=== PATIENT | female | born 1965 | race Caucasian/White ===

== ENCOUNTER 2023-04-13 09:59 | Emergency (ER) | payer OTHER, MEDICAID, SELFPAY ==
[2023-04-13] VITALS (10 sets, daily range): BP systolic 182–211; BP diastolic 107–125; PULSE 88–102; RESP 10–24; TEMP 36.8; O2SAT 95–98
--- NOTE | 2023-04-13 10:20 | DI.RAD.S_ITS ---
PROCEDURE: XR CHEST 1V INDICATIONS: chest pain TECHNIQUE: One view of the chest was acquired. COMPARISON: None. FINDINGS: Surgical changes and devices: None. Lungs and pleura: Lungs are clear. No pleural effusions or pneumothorax. Mediastinum: Mediastinal contours appear normal. Heart size is normal. Bones and chest wall: No suspicious bony lesions. Rightward curvature of the thoracic spine. Overlying soft tissues appear unremarkable. IMPRESSION: Portable chest within normal limits for age. Dictated by: Ricki Velásquez M.D. on 04/13/2023 at 11:15 Approved by: Ricki Velásquez M.D. on 04/13/2023 at 11:16
[2023-04-13 10:49] LABS: Add Manual Diff / Slide Review NO; Basophils Absolute Auto 0 /uL (0-100); Basophils Percent Auto 0.5 % (0-2); Eosinophils Absolute Auto 100 /uL (0-450); Eosinophils Percent Auto 0.7 % (2-4); Hemoglobin 12.3 g/dL (12.0-16.0); Lymphocytes Absolute Auto 1300 /uL (1100-4500); Lymphocytes Percent Auto 15.8 % (25-40); Mean Corpuscular HGB Conc 33.3 % (30-36); Mean Corpuscular Hemoglobin 30.2 PG (26-34); Mean Corpuscular Volume 90.8 fL (80-100); Monocytes Absolute Auto 400 /uL (0-900); Monocytes Percent Auto 4.8 % (3-14); Neutrophils Absolute Auto 6400 /uL (1500-7000); Neutrophils Percent Auto 78.2 % (50-75); Platelet Count 231 X10^3/uL (150-400); Red Blood Cell Count 4.08 X10^6/uL (4.0-5.2); Red Cell Distribution Width 13.7 % (11.6-14.8); White Blood Cell Count 8.2 X10^3/uL (4.5-11.0)
--- NOTE | 2023-04-13 10:52 | ED.GENADULT ---
HPI - General Adult General Chief complaint: Hypertension Stated complaint: high BP/ V/HX farooq heartattacks Time Seen by Provider: 04/13/23 10:19 Source: patient Mode of arrival: Family Vehicle History of Present Illness HPI narrative: 58-year-old female who does have history of coronary artery disease and also hypertension. She is been off of her blood pressure medicine for several days if not potentially a little longer. States she just ran out of the medications. She was riding the bus to get her dose of methadone today when she stated that she had a episode of nausea and vomiting. She did vomit and felt much better almost immediately afterwards. She denies chest pain or shortness of breath or headache or lower extremity swelling. She was checked out at the clinic and was brought to the emergency department because of her elevated blood pressure. Related Data Home Medications Medication Instructions Recorded Confirmed aspirin 81 mg chewable tablet 1 tab PO DAILY 04/13/23 04/13/23 atorvastatin 80 mg tablet 80 mg PO DAILY 04/13/23 04/13/23 metoprolol succinate 50 mg 50 mg PO DAILY 04/13/23 04/13/23 tablet,extended release 24 hr spironolactone 25 mg tablet 25 mg PO DAILY 04/13/23 04/13/23 valsartan 320 mg tablet 320 mg PO DAILY 04/13/23 04/13/23 Previous Rx's Medication Instructions Recorded metoprolol succinate 50 mg 50 mg PO DAILY #30 tabs 04/13/23 tablet,extended release 24 hr spironolactone 25 mg tablet 25 mg PO DAILY #30 tabs 04/13/23 valsartan 320 mg tablet 320 mg PO DAILY #30 tabs 04/13/23 Allergies Allergy/AdvReac Type Severity Reaction Status Date / Time No Known Drug Allergies Allergy Verified 04/13/23 11:33 Review of Systems Constitutional Constitutional: Reports system reviewed and no additional complaints, except as documented Cardiovascular Cardiovascular: Reports system reviewed and no additional complaints, except as documented Respiratory Respiratory: Reports system reviewed and no additional complaints, except as documented Gastrointestinal Gastrointestinal: Reports system reviewed and no additional complaints, except as documented Integumentary/Breasts Skin/Breast: Reports system reviewed and no additional complaints, except as documented Neurologic Neurologic: Reports system reviewed and no additional complaints, except as documented Hematologic/Lymphatic On Anticoagulants: No Patient History Medical History Coronary artery disease Hypertension Social History Smoking Status: Current every day smoker Smoking Status: Current every day smoker tobacco type: cigarettes alcohol intake frequency: 0-2 drinks per day Substance Use Type: former substance user, marijuana, heroin, 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 Exam Initial Vital Signs Initial Vital Signs: Vital Signs Pulse Rate 102 H 04/13/23 10:21 Respiratory Rate 24 04/13/23 10:21 Pulse Oximetry 98 04/13/23 10:21 HENMT Head: normal to inspection Resp Effort & Inspection: normal respiratory effort Auscultation: clear to auscultation bilaterally Cardio Rate: regular rate Rhythm: regular rhythm GI Inspection: normal to inspection Skin General: no rashes or lesions noted Neuro General: patient alert, patient awake and moves all extremities Extrem General: No edema Course Orders Ordered: ED Orders 04/13/23 10:20 XR chest 1V Stat EKG-12 Lead Stat 04/13/23 10:40 Complete Blood Count AUTO DIFF Stat Comprehensive Metabolic Panel Stat Lipase Stat Troponin & CK Cardiac Panel Stat 04/13/23 11:[address] [facility] [place] - Transmission Repairer Stat Discontinued Medications Metoprolol Succinate (Metoprolol Er 50 Mg Tablet) 50 mg PO NOW ONE Stop: 04/13/23 11:47 Spironolactone (Spironolactone 25 Mg Tablet) 25 mg PO NOW ONE Stop: 04/13/23 11:47 Valsartan (Valsartan 80 Mg Tablet) 320 mg PO NOW ONE Stop: 04/13/23 11:47 Vital Signs Vital signs: Vital Signs - 8 hr 04/13/23 10:30 04/13/23 10:23 04/13/23 10:21 Temperature 98.2 F 98.2 F Pulse Rate 100 H 98 H 102 H Respiratory Rate 20 16 24 Blood Pressure 182/114 H 182/107 H Pulse Oximetry 97 98 98 Oxygen Delivery Method Room Air Room Air 04/13/23 10:22 04/13/23 10:22 04/13/23 10:30 Temperature Pulse Rate 100 H Respiratory Rate 10 L Blood Pressure 182/107 H 182/114 H Pulse Oximetry 97 Oxygen Delivery Method Room Air 04/13/23 10:30 04/13/23 10:39 04/13/23 10:39 Temperature Pulse Rate 101 H 98 H Respiratory Rate 19 23 Blood Pressure 183/115 H Pulse Oximetry 96 97 Oxygen Delivery Method Room Air 04/13/23 11:00 04/13/23 11:00 04/13/23 11:30 Temperature Pulse Rate 100 H Respiratory Rate 22 Blood Pressure 196/119 H 206/125 H Pulse Oximetry 97 Oxygen Delivery Method 04/13/23 11:30 04/13/23 12:00 04/13/23 12:00 Temperature Pulse Rate 102 H 102 H Respiratory Rate 15 22 Blood Pressure 211/125 H Pulse Oximetry 96 95 Oxygen Delivery Method Room Air Room Air Medical Decision Making Lab Data Lab results reviewed: Yes I reviewed the patient's lab results. 04/13/23 10:40 04/13/23 10:40 Labs: Lab Results 04/13/23 04/13/23 04/13/23 Range/Units 10:40 10:40 10:40 WBC 8.2 (4.5-11.0) X10^3/uL RBC 4.08 (4.0-5.2) X10^6/uL Hgb 12.3 (12.0-16.0) g/dL Hct 37.0 (36-46) % MCV 90.8 (80-100) fL MCH 30.2 (26-34) PG MCHC 33.3 (30-36) % RDW 13.7 (11.6-14.8) % Plt Count 231 (150-400) X10^3/uL Neut % (Auto) 78.2 H (50-75) % Lymph % (Auto) 15.8 L (25-40) % Wilkin % (Auto) 4.8 (3-14) % Eos % (Auto) 0.7 L (2-4) % Baso % (Auto) 0.5 (0-2) % Neut # (Auto) 6400 (2551-2620) /uL Lymph # (Auto) 1300 (0622-6929) /uL Wilkin # (Auto) 400 (0-900) /uL Eos # (Auto) 100 (0-450) /uL Baso # (Auto) 0 (0-100) /uL Sodium 139 (137-145) mmol/L Potassium 4.2 (3.4-5.1) mmol/L Chloride 107 (98-107) mmol/L Carbon Dioxide 25 (22-32) mmol/L BUN 23 H (7-17) mg/dL Creatinine 1.31 H (0.52-1.04) mg/dL Estimated GFR 47 L (>60) mL/min BUN/Creatinine Ratio 17.6 (6-22) Glucose 107 (80-110) mg/dL Calcium 9.7 (8.4-10.2) mg/dL Total Bilirubin 0.4 (0.2-1.3) mg/dL AST 26 (14-36) IU/L ALT 15 (<35) IU/L Alkaline Phosphatase 50 (38-126) U/L Total Creatine Kinase 69 (30-135) U/L Troponin I 0.014 (0.01-0.034) ng/mL Total Protein 7.2 (6.3-8.2) g/dL Albumin 4.0 (3.5-5.0) g/dL Globulin 3.2 (1.7-4.1) g/dL Albumin/Globulin Ratio 1.3 (1.0-2.8) Lipase 82 (23-300) U/L Imaging Data Chest x-ray: Radiologist's Impression: PROCEDURE:? XR CHEST 1V ? INDICATIONS:? chest pain ? TECHNIQUE:? One view of the chest was acquired.? ? COMPARISON:? None. ? FINDINGS:? ? Surgical changes and devices:? None.? ? Lungs and pleura:? Lungs are clear.? No pleural effusions or pneumothorax.? ? Mediastinum:? Mediastinal contours appear normal.? Heart size is normal.? ? Bones and chest wall:? No suspicious bony lesions.? Rightward curvature of the thoracic spine.? Overlying soft tissues appear unremarkable.? ? ? IMPRESSION:? Portable chest within normal limits for age. ECG Data Attestation: I personally reviewed and interpreted this ECG as follows: Interpretation: Sinus rhythm Ventricular rate 97 Normal axis Normal QRS Healthy age No ST T wave changes MDM Narrative Medical decision making narrative: Patient is hypertensive however not having an acute ACS, CHF, intracranial hemorrhage or renal failure. She is afebrile. Plan will be to refill her medications. She currently has a plan to get a primary care provider. We did discuss the importance of follow-up. She was given return precautions. She expressed understanding and agreement. Discharge Plan Departure Patient Disposition: Home Clinical Impression: Hypertension Instructions: DI for High Blood Pressure Prescriptions: New metoprolol succinate 50 mg tablet extended release 24 hr 50 mg PO DAILY Qty: 30 2RF spironolactone 25 mg tablet 25 mg PO DAILY Qty: 30 2RF valsartan 320 mg tablet 320 mg PO DAILY Qty: 30 2RF No Action metoprolol succinate 50 mg tablet extended release 24 hr 50 mg PO DAILY spironolactone 25 mg tablet 25 mg PO DAILY valsartan 320 mg tablet 320 mg PO DAILY atorvastatin 80 mg tablet 80 mg PO DAILY aspirin 81 mg tablet,chewable 1 tab PO DAILY Referrals: Miscellaneous,Doctor, MD [Primary Care Provider] - Stand Alone Forms: Patient Portal/API
[2023-04-13 10:59] LABS: Alanine Aminotransferase 15 IU/L (<35); Albumin Globulin Ratio 1.3 (1.0-2.8); Alkaline Phosphatase 50 U/L (38-126); Aspartate Aminotransferase 26 IU/L (14-36); BUN Creatinine Ratio 17.6 (6-22); Bilirubin Total 0.4 mg/dL (0.2-1.3); Blood Urea Nitrogen 23 mg/dL (7-17); Calcium 9.7 mg/dL (8.4-10.2); Carbon Dioxide 25 mmol/L (22-32); Chloride 107 mmol/L (98-107); Estimated Glomerular Filt Rate 47 mL/min (>60); Globulin 3.2 g/dL (1.7-4.1); Glucose 107 mg/dL (80-110); HEMOLYSIS 36 (0-50); Lipase 82 U/L (23-300); Potassium 4.2 mmol/L (3.4-5.1); Sodium 139 mmol/L (137-145); Total Protein 7.2 g/dL (6.3-8.2)
[2023-04-13 11:02] LABS: Creatine Kinase 69 U/L (30-135)
[2023-04-13 11:15] LABS: Troponin I 0.014 ng/mL (0.01-0.034)
[2023-04-13] MEDS: METOPROLOL ER 50 MG TABLET PO (12:09)
[2023-04-13] MEDS: SPIRONOLACTONE 25 MG TABLET PO (12:09)
[2023-04-13] MEDS: VALSARTAN 80 MG TABLET 320 MG PO (12:09)
--- NOTE | 2023-04-13 12:23 | PC.NURSE ---
See providers note for further details, patient assessed and discharged by provider.
== END 2023-04-13 12:39 | disposition home or self-care (01) ==
PROVIDERS: Emergency Provider Emergency Medicine
DX: I10 Essential (primary) hypertension (principal); Z79.899 Other long term (current) drug therapy; R07.9 Chest pain, unspecified
CPT/HCPCS: 36415; 71045; 80053; 82550; 83690; 84484; 85025; 93005; 99284